=== PATIENT | female | born 1970 | race American Indian/Alaskan Native ===

== ENCOUNTER 2021-02-02 10:04 | Outpatient (CLI) | payer OTHER ==
--- NOTE | 2021-02-02 12:16 | Mammography Report ---
DIGITAL SCREENING MAMMOGRAM WITH CAD, 02/02/2021 CLINICAL INFORMATION / INDICATION: Routine screening mammography. SCREENING MAMMO TECHNIQUE: Digital bilateral 2D mammography was obtained in the craniocaudal and mediolateral obliqu e projections. This examination was interpreted with the benefit of Computer-Aided Detection analysis . COMPARISON: None currently available. FINDINGS: Breast Density: There are scattered areas of fibroglandular density. No dominant mass, suspicious calcifications, or architectural distortion in either breast. IMPRESSION: No mammographic evidence of malignancy. Follow up recommendation: Routine yearly BI-RADS Category 1: Negative. A "normal" or negative report should not discourage follow up or biopsy of a clinically significant f inding. A written summary of these findings will be mailed to the patient. The patient will be entered into a mammography reporting system which will generate a reminder letter for the patient's next appointmen t at the appropriate interval. The [employer] recommends yearly mammograms starting at age 40 and continuing as l ceci as a woman is in good health. Breast MRI is recommended for women with an approximate 20-25% or greater lifetime risk of breast cancer, including women with a strong family history of breast or ova zachary cancer or who have been treated for Hodgkin's disease. Signer Name: Fito Costello MD Signed: 02/02/2021 12:12 PM Workstation Name: [id number]
== END 2021-02-02 10:05 | disposition home or self-care (01) ==
LOC: SPVWC 10:04
PROVIDERS: ATTEND Internal Medicine
DX: Z12.31 Encounter for screening mammogram for malignant neoplasm of breast (principal)
CPT/HCPCS: 77067

== ENCOUNTER 2022-03-20 14:47 | Outpatient (CLI) | payer OTHER ==
--- NOTE | 2022-03-21 13:40 | Mammography Report ---
DIGITAL SCREENING MAMMOGRAM WITH CAD, 03/20/2022 CLINICAL INFORMATION / INDICATION: Routine screening mammography. SCREENING MAMMO Z12.31 TECHNIQUE: Digital bilateral 2D mammography was obtained in the craniocaudal and mediolateral obliqu e projections. This examination was interpreted with the benefit of Computer-Aided Detection analysis . COMPARISON: 02/02/21. FINDINGS: Breast Density: There are scattered areas of fibroglandular density. No dominant mass, suspicious calcifications, or architectural distortion in either breast. IMPRESSION: No mammographic evidence of malignancy. Follow up recommendation: Routine yearly screening mammogram. BI-RADS Category 1: NEGATIVE A "normal" or negative report should not discourage follow up or biopsy of a clinically significant f inding. A written summary of these findings will be mailed to the patient. The patient will be entered into a mammography reporting system which will generate a reminder letter for the patient's next appointmen t at the appropriate interval. The [employer] recommends yearly mammograms starting at age 40 and continuing as l ceci as a woman is in good health. Breast MRI is recommended for women with an approximate 20-25% or greater lifetime risk of breast cancer, including women with a strong family history of breast or ova zachary cancer or who have been treated for Hodgkin's disease. Signer Name: Fito Costello MD Signed: 03/21/2022 1:36 PM Workstation Name: [id number]
== END 2022-03-20 14:48 | disposition home or self-care (01) ==
LOC: SPVWC 14:47
PROVIDERS: ATTEND Internal Medicine
DX: Z12.31 Encounter for screening mammogram for malignant neoplasm of breast (principal)
CPT/HCPCS: 77067